=== PATIENT | female | born 1940 | race Caucasian/White ===

== ENCOUNTER 2018-05-17 15:13 | Inpatient (IN) | payer MEDICARE, OTHER ==
[~2018-05-17] VITALS: Ht 172.7 cm; Wt 97.6 kg
--- NOTE | ~2018-05-17 | O ---
[place], [place] OPERATIVE NOTE NAME: LANI SOLIS UNIT #: [id number] ROOM: 415 DOCTOR: ANG WYMAN MD BIRTHDATE: [birth year] DOS: 05/17/2018 INDICATIONS: This is a 77-year-old patient who has presented with chief complaint of dysphagia, difficulty with swallowing pills and anorexia, history of diabetes to the Emergency Room. We were concerned with esophageal foreign body possibility. OPERATION PERFORMED: Today's procedure part of investigation is panendoscopy plus propofol. SCOPE: Olympus forward-viewing gastroscope Q10 video. REPORT: After putting the patient in left lateral position and application of lubricant to the scope, the scope was introduced. Thereafter, under direct visualization, advanced through the length of esophagus without difficulty. Hiatal hernia was noticed. Benign upper esophageal stricture was noticed. Gastritis seen. Antral biopsy obtained. Duodenal bulb, second and third part within normal limits. Photographic series obtained. GI reflexion of the scope was performed. Antral biopsy sample was verified. A balloon size 20 was introduced into gastric pouch and swept along the length of the esophagus. Highest resistance in upper esophagus was noticed. Air was suctioned out. The patient was extubated, tolerated the procedure well. IMPRESSION: Esophageal stricture in upper esophagus status post balloon dilation to size 20, full size gastritis. PLAN AND DISCUSSION: We are going to give her Protonix 40 mg p.o. every day, soft diet tomorrow clear liquid today and clinical reassessment. ANG WYMAN MD CM:OPRECORD:OPERATIVE NOTE 15 41 ANG WYMAN MD 05/17/182042 interface
--- NOTE | ~2018-05-17 | EKG ---
[place], [place] ELECTROCARDIOGRAM REPORT NAME: LANI SOLIS UNIT #: [id number] ROOM: DOCTOR: EPIPHANY DRAFT REPORT BIRTHDATE: [birth year] [facility] Test Date: 2018-05-17 Test Time: 16:09:17 Pat Name: LANI SOLIS Department: Room: Gender: F Assurance Services Manager Health Care: ANGELA : 1940 Requested By: DESTIN ENNIS DNP Order Number: [id number] Reading MD: Measurements Intervals [place] Rate: 55 P: 47 PA: 155 QRS: -26 QRSD: 96 T: 64 QT: 462 QTc: 442 Interpretive Statements Sinus rhythm Borderline left axis deviation Abnormal R-wave progression, late transition Borderline T abnormalities, anterior leads No previous ECG available for comparison CM:EKGRPT:ELECTROCARDIOGRAM REPORT 1609 1311 [facility] D[facility] RE[facility] DESTIN ENNIS DNP
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
[~2018-05-17 15:13] MED LIST: DAYPRO600 M1 PO; KEFLEX500 MG PO
[2018-05-17 15:18] VITALS: BP 182/72
[2018-05-17 16:23] LABS: ALBUMIN 3.3 gm/dl (3.1-4.5); ALKALINE PHOSPHATASE 67 U/L (45-117); BUN 6 mg/dl (7-24); CHLORIDE 101 mmol/L (98-107); CREATININE 0.75 mg/dL (0.55-1.02); LIPASE 49 U/L (73-393); POTASSIUM 3.2 mmol/L (3.5-5.1); SGOT/AST 19 IU/L (3-35); SGPT/ALT 24 U/L (12-78); SODIUM 135 mmol/L (136-145); TOTAL PROTEIN 7.1 gm/dL (6.4-8.2); TROPONIN I < 0.015 ng/ml (<0.045)
[2018-05-17 16:31] LABS: BASO # 0.1 10*3/uL (0.0-0.1); BASO % 0.8 % (0.0-1.0); EOS # 0.1 10*3/uL (0.0-0.4); EOS % 1.5 % (1.0-4.0); HEMATOCRIT 41.8 % (37.0-47.0); HEMOGLOBIN 14.2 g/dl (12.0-16.0); LYMPH # 0.9 10*3/uL (1.3-4.4); LYMPH % 11.3 % (27.0-41.0); MEAN CELL VOLUME 98.4 fl (81.0-99.0); MEAN CORPUSCULAR HGB 33.4 pg (27.0-31.0); MONO # 0.7 10*3/uL (0.1-1.0); MONO % 8.7 % (3.0-9.0); NEUT # 6.1 10*3/uL (2.3-7.9); NEUT % 77.3 % (47.0-73.0); PLATELET COUNT AUTOMATED 236 10*3/uL (130-400); RED BLOOD COUNT 4.25 10*6/uL (4.10-5.10); RED CELL DISTRI WIDTH 12.9 % (0-14.5); WHITE BLOOD COUNT 7.9 10*3/uL (4.8-10.8)
[2018-05-17 17:16] LABS: BILIRUBIN NEGATIVE (NEGATIVE); BLOOD NEGATIVE (NEGATIVE); CLARITY CLEAR (CLEAR); COLOR YELLOW (YELLOW); GLUCOSE NEGATIVE (NEGATIVE); KETONE 1+ (NEGATIVE); LEUKO ESTERASE NEGATIVE (NEGATIVE); NITRITE NEGATIVE (NEGATIVE); SPECIFIC GRAVITY <= 1.005 (1.005-1.030); UROBILINOGEN 0.2 E.U./dl (0.2-1.0)
--- NOTE | 2018-05-17 17:24 | NUR ---
FISNISHED MOST OF GI COCKTAIL
[2018-05-17 17:30] LABS: BACTERIA 2+; RBC 0-2 rbc/hpf (0-2)
--- NOTE | 2018-05-17 17:56 | NUR ---
GI COCKTAIL EFFECIVE. PT TOLERATED AND RETAINED.
--- NOTE | 2018-05-17 18:19 | NUR ---
PT TO SURGERY VIA BED BY Matt BRAVO. ALL BELONGINGS SENT WITH PT.
[2018-05-17 18:20] VITALS: BP 162/67
[2018-05-17 19:12] VITALS: BP 115/55
[2018-05-17 19:27] VITALS: BP 116/57
[2018-05-17 19:42] VITALS: BP 126/51
[2018-05-17 19:50] VITALS: BP 120/60; BP 122/60
--- NOTE | 2018-05-17 19:50 | NUR ---
Time: 1948 A 77 year old FEMALE admitted to under services of YOLANDE MORENO DO. Pt. arrived via stretcher from ER. Chief complaint: DYSPHAGIA, HYPOKALEMIA. MYLES VITALE
[2018-05-17] MEDS ORDERED: LEVOTHYROXINE100 MC1 PO (20:51)
[2018-05-17] MEDS ORDERED: LOSARTAN-HCTZ1 EAC2 PO (20:52)
[2018-05-17] MEDS ORDERED: SIMVASTATIN20 MG PO (20:52)
[2018-05-17] MEDS ORDERED: 'TENORMIN50 MG PO (20:52)
[2018-05-17] MEDS ORDERED: GLUCOPHAGE500 M1 PO (20:53)
[2018-05-17] MEDS ORDERED: ESTRACE0.5 MG PO (20:54)
[2018-05-17] MEDS ORDERED: GLIPIZIDE5 MG PO (20:54)
[2018-05-17] MEDS ORDERED: VITAMIN D-32000 UNI1 PO (20:55)
[2018-05-17] MEDS ORDERED: METHOTREXATE2.5 MG PO (20:56)
[2018-05-17] MEDS ORDERED: NATURE'S BLEND F1 MG PO (20:56)
[2018-05-17] MEDS ORDERED: PRESERVISION L1 EACH PO (20:57)
[2018-05-18] VITALS: BP 144/59
[2018-05-18 07:02] LABS: BASO # 0.1 10*3/uL (0.0-0.1); BASO % 0.7 % (0.0-1.0); EOS # 0.2 10*3/uL (0.0-0.4); EOS % 3.1 % (1.0-4.0); HEMOGLOBIN 13.1 g/dl (12.0-16.0); LYMPH % 15.2 % (27.0-41.0); MEAN CELL VOLUME 99.7 fl (81.0-99.0); MEAN CORPUSCULAR HGB 33.5 pg (27.0-31.0); MEAN CORPUSCULAR HGB CONC 33.6 g/dl (33.0-37.0); MEAN PLATELET VOLUME 10.8 fl (9.6-12.3); MONO # 0.8 10*3/uL (0.1-1.0); MONO % 12.2 % (3.0-9.0); NEUT # 4.6 10*3/uL (2.3-7.9); NEUT % 68.5 % (47.0-73.0); PLATELET COUNT AUTOMATED 209 10*3/uL (130-400); RED BLOOD COUNT 3.91 10*6/uL (4.10-5.10); RED CELL DISTRI WIDTH 13.1 % (0-14.5); WHITE BLOOD COUNT 6.7 10*3/uL (4.8-10.8)
[2018-05-18 07:22] LABS: CHLORIDE 103 mmol/L (98-107); POTASSIUM 3.2 mmol/L (3.5-5.1); SODIUM 139 mmol/L (136-145)
[2018-05-18 07:39] LABS: BUN 5 mg/dl (7-24); CHOLESTEROL 131 mg/dL (<200); CREATININE 0.74 mg/dL (0.55-1.02); FREE T4 1.55 ng/dl (0.76-1.46); HDL CHOLESTEROL 42 mg/dl (40-60); LDL CHOLESTEROL 64 mg/dL (9-159); PHOSPHOROUS 3.2 mg/dL (2.5-4.9); THYROID STIM HORMONE (HS) 0.423 uIU/ml (0.358-4.75); TRIGLYCERIDES 127 mg/dl (<150); VLDL CHOLESTEROL 25 mg/dL (6-40)
[2018-05-18 08:00] VITALS: BP 136/52
--- NOTE | 2018-05-18 08:00 | NUR ---
PATIENT RESTING QUIETLY IN BED. NO DISTRESS NOTED. RESPIRATIONS EASY, REGULAR ON RA. IVF MAINTAINED PER ORDER. PT ABLE TO SWALLOW PO PROTONIX. DENIES ANY N/V. WILL CONTINUE TO MONITOR. CALL LIGHT WITHIN REACH. VSS.
[2018-05-18 08:24] LABS: VITAMIN D, 25-HYDROXY 50.5 ng/mL (30-100)
--- NOTE | 2018-05-18 09:00 | NUR ---
Signalling And Communications Engineer in to talk to patient. Patient states lives at home with alone. There are few steps in the home. Physician: [facility] Home health services: none Patient's level of ADLs: INDEPENDENT Patient has working utilities: all working DME: cane and walker Follow-up physician's appointment after d/c: will be made by hospitalist nurse director upon discharge Does patient want to access PORTAL?: no Discharge plan discussed with patient, patient lives at home alone, she states she is independent in adls and ambulation using a walker or cane, patient states she will be going home when able. discussed with her VNA and she declinies any services at this time. JOSÉ MANUEL TONY
[2018-05-18 12:00] VITALS: BP 138/52
--- NOTE | 2018-05-18 12:00 | NUR ---
Patient resting quietly with no c/o discomfort. Respirations easy and regular. Vital signs stable. No overt distress. SASCHA MEEKS
[2018-05-18] MEDS ORDERED: PROTONIX IV40 MG IV (14:15)
--- NOTE | 2018-05-18 15:46 | NUR ---
Discharge instructions reviewed with patient/family. Patient receptive and verbalizes understanding. Follow-up care arranged. Written instructions given to patient/family. SASCHA MEEKS.
== END 2018-05-18 15:45 | disposition home or self-care (01) | DRG 392 ==
LOC: ED 15:13 → 4E 17:59 → EDHOLD 17:59 → 4E 18:27
PROVIDERS: Internal Medicine; Nurse Practitioner Family; ADMIT Internal Medicine
PROC: 0D718ZZ Dilation of Upper Esophagus, Via Natural or Artificial Opening Endoscopic (ICD-10-PCS; principal; 2018-05-17)
PROC: 0DB78ZX Excision of Stomach, Pylorus, Via Natural or Artificial Opening Endoscopic, Diagnostic (ICD-10-PCS; principal; 2018-05-17)
DX: K22.2 Esophageal obstruction (principal); E87.1 Hypo-osmolality and hyponatremia; E87.6 Hypokalemia; K59.00 Constipation, unspecified; R79.82 Elevated C-reactive protein (CRP); R74.8 Abnormal levels of other serum enzymes; D72.810 Lymphocytopenia; Z96.1 Presence of intraocular lens; F17.210 Nicotine dependence, cigarettes, uncomplicated; K29.70 Gastritis, unspecified, without bleeding; K44.9 Diaphragmatic hernia without obstruction or gangrene; R82.4 Acetonuria; E66.9 Obesity, unspecified; M19.90 Unspecified osteoarthritis, unspecified site; R82.71 Bacteriuria; E11.9 Type 2 diabetes mellitus without complications; E03.9 Hypothyroidism, unspecified; I10 Essential (primary) hypertension; E78.5 Hyperlipidemia, unspecified; M06.9 Rheumatoid arthritis, unspecified; Z71.6 Tobacco abuse counseling; Z90.710 Acquired absence of both cervix and uterus; Z83.3 Family history of diabetes mellitus; Z98.49 Cataract extraction status, unspecified eye; Z84.89 Family history of other specified conditions; Z79.899 Other long term (current) drug therapy; Z68.32 Body mass index [BMI] 32.0-32.9, adult

== ENCOUNTER 2018-05-28 10:11 | Inpatient (IN) | payer MEDICARE, OTHER ==
[~2018-05-28] VITALS: Ht 172.7 cm; Wt 93.9 kg
--- NOTE | ~2018-05-28 | O ---
[place], [place] OPERATIVE NOTE NAME: LANI SOLIS UNIT #: [id number] ROOM: 420 DOCTOR: ANG WYMAN MD BIRTHDATE: [birth year] DOS: 05/31/2018 GASTROENDOSCOPIC REPORT HISTORY OF PRESENT ILLNESS: The patient has presented with chief complaint of dysphagia, status post esophageal swallow study and esophageal barium esophagram. Neither one yielded any specific information. Normal esophagram has been reported. Normal swallow study has been reported. Modified barium swallow had been normal. Labs on records have been studied. There have been all within normal limits. PROCEDURE: Today's procedure part of investigation is panendoscopy plus esophageal dilation with balloon size 20 as well as antral biopsy from erosions. PREMEDICATION: Propofol. SCOPE: Olympus forward-viewing gastroscope Q10 video. REPORT: After putting the patient in left lateral position and application of lubricant to the scope, the scope was introduced; thereafter, under direct visualization, advanced through the length of esophagus without difficulty. Esophagus cervicothoracic distally within normal limits. Gastric pouch was entered. Gastritis seen. Antral erosions appreciated. Duodenal bulb, second and third part within normal limits. Antral biopsy obtained. The patient was gradually extubated to proximal stomach, a balloon size 20 was placed in the gastric pouch, inflated to size 20 and gradually the entire length of the esophagus was dilated. Highest resistance in the upper esophagus. The patient extubated, tolerated the procedure well. IMPRESSION: 1. Esophageal benign stricture, status post balloon dilation to size 20. 2. Gastritis, status post biopsy for erosions in the antrum. PLAN AND DISCUSSION: Continuation with Protonix 40 mg daily and clinical reassessment. [place], [place] OPERATIVE NOTE NAME: LANI SOLIS UNIT #: [id number] ROOM: 420 DOCTOR: ANG WYMAN MD BIRTHDATE: [birth year] ANG WYMAN MD CM:OPRECORD:OPERATIVE NOTE 1203 1353 ANG WYMAN MD 05/31/18 1354 interface
--- NOTE | ~2018-05-28 | PROC NOTE ---
[place], [place] PROCEDURE NOTE NAME: LANI SOLIS UNIT #: [id number] ROOM: 420 DOCTOR: ARTURO JOHN BIRTHDATE: [birth year] DOS: 05/29/2018 MODIFIED BARIUM SWALLOW LOCATION: [facility]. ROOM: 420, bed 1. ORDERING PHYSICIAN: Dr. Pagan. RADIOLOGIST: Dr. Mijares. BACKGROUND INFORMATION: The patient is a 77-year-old female who was seen for modified barium swallow. This test was ordered due to dysphagia, weakness and dehydration. The patient was alert and a good historian. She reported that for the past month, she has been experiencing a sensation of globus in her throat when eating causing her to cough up foods. She stated that she takes tiny bites and chew thoroughly, but the problem still occurs. She has lost greater than 10 pounds due to this. An EGD was performed in 04/2018. The patient was diagnosed with esophageal stricture and dilation was performed. The patient reported that she seemed to have relief following dilation, but this past weekend, her problems reoccurred and she is now weak and unable to tolerate even soft foods. She is currently ordered a full liquid diet. For today's assessment, respiratory status was within normal limits. Oral peripheral examination revealed presence of upper denture with adequate fit. She presented with natural bottom teeth; however, back teeth were missing. Lingual, labial, and buccal skills were within normal limits in terms of strength, range of motion, and coordination. Volitional cough and swallow were adequate. METHODS AND MATERIALS USED FOR THE EXAM: The patient was positioned in the lateral plane and the exam was viewed under fluoroscopy. The patient was presented with a variety of consistencies to assess swallowing skills including applesauce mixed with barium presented in half teaspoon amount. Barium coated cookie given in bite size piece and thin liquid barium taken by cup. ORAL PHASE: Unremarkable. PHARYNGEAL PHASE: Unremarkable. ESOPHAGEAL PHASE: This phase of the swallow was not formally assessed during this examination. IMPRESSIONS AND RECOMMENDATIONS: Based upon assessment results, this 77-year-old female presents with oral and pharyngeal swallowing skills that are within normal limits. There was no oral difficulty. The patient was able to swallow in a timely manner with no penetration or aspiration and no pharyngeal residue. She did report a sensation that food was sticking and this was most likely occurring in her esophageal area, which is not assessed during this examination. Due to these results, the patient would benefit from an esophagram to assess the function of the esophagus as her difficulties are not due to oral [place], [place] PROCEDURE NOTE NAME: LANI SOLIS UNIT #: [id number] ROOM: [facility] DOCTOR: ARTURO JOHN BIRTHDATE: [birth year] or pharyngeal difficulty. No further speech pathology services are indicated at this time. Results and recommendations were shared with the patient, her nurse and Dr. Pagan and they verbalized understanding. Thank you very much for this referral. Should you have any questions regarding this patient, please contact the speech pathologist at [phone]. ARTURO JOHN CM:PROCNOTE:PROCEDURE NOTE 1018 1350 ANG JOHN
--- NOTE | ~2018-05-28 | CON ---
[place], [place] REPORT OF CONSULTATION NAME: LANI SOLIS UNIT #: [id number] ROOM: 420 DOCTOR: ZAMZAM FINLEYANG BIRTHDATE: [birth year] DOS: 05/29/2018 HISTORY OF PRESENT ILLNESS: A 77-year-old lady has presented with chief complaint of difficulty swallowing. The patient was placed for swallow study this morning, I was called by the painting technician that she had no problem in swallowing the food; however, perhaps there is a lower esophageal involvement. Esophagram has been organized to follow up. She has had 2 weeks ago esophageal dilation to size 20 and accordingly it had helped minimally. Her CBC differential was addressed, microcytic indices with H and H of 14 and 45 has been identified. GFR greater than 60. Electrolytes balance, liver function tests normal. INR 1.0. Urinalysis within normal limits. CBC differential within normal limit. Basic metabolic potassium of 3.2, has been addressed. PAST MEDICAL HISTORY: Complaining of dysphagia, status post esophageal dilation 2 weeks ago. Past medical history also associated with hypothyroidism, systemic hypertension, borderline obesity, hyperlipidemia, rheumatoid arthritis. PAST SURGICAL HISTORY: Hysterectomy, esophageal dilation, lumpectomy left breast, cataract removal. SOCIAL HISTORY: Smoker, nonalcohol consumer. FAMILY HISTORY: Noncontributory. ALLERGIES: No known medications. MEDICATIONS: List has been reviewed. REVIEW OF SYSTEMS: HEENT: Denies double vision, blurred vision. RESPIRATORY: Denies shortness of breath. CARDIOVASCULAR: Denies acute chest pain. DIGESTIVE SYSTEM: No hematemesis, no hematochezia, or dysphagia. PHYSICAL EXAMINATION: VITAL SIGNS: Stable. HEENT: Head normocephalic, nontraumatic. Mouth and buccal mucosa benign. NECK: Supple, no thyromegaly, no cervical lymphadenopathy. CHEST: Symmetric anatomy, equal expansion. No wheeze, no rhonchi. HEART: Normal sinus rhythm, no gallop, no murmur. ABDOMEN: Obese, soft. No hepato-organomegaly. Bowel sounds present. No pulsatile mass. EXTREMITIES: No cyanosis, no pedal edema. NEUROLOGIC: Alert, oriented to time, place, and person. LABORATORY DATA: Labs reviewed, records reviewed. IMPRESSION: Dysphagia, etiology to be ruled out, ruling out esophageal dysmotility, ruling out achalasia, hyperlipidemia, hypertension, diabetes mellitus, hypothyroidism, rheumatoid arthritis, all has been recognized. [place], [place] REPORT OF CONSULTATION NAME: LANI SOLIS UNIT #: [id number] ROOM: 420 DOCTOR: ANG WYMAN MD BIRTHDATE: [birth year] PLAN AND DISCUSSION: Since a swallow study was normal, we are going to proceed with a barium esophagram to make sure there are other issues of concern ruled out and if inconclusive, we are going to proceed with EGD dilation next morning or two and we are going to keep off anticoagulants and supportive management. OTHER ADJUNCTIVE DIAGNOSES: As outlined in paragraph of past medical and surgical history. Thank you very much indeed. ANG WYMAN MD CM:CONSTR:REPORT OF CONSULTATION 1258 05/30/18 0405 interface
[~2018-05-28 10:11] MED LIST changes: +'TENORMIN50 MG PO; +ESTRACE0.5 MG PO; +GLIPIZIDE5 MG PO; +GLUCOPHAGE500 M1 PO; +LEVOTHYROXINE100 MC1 PO; +LOSARTAN-HCTZ1 EAC2 PO; +METHOTREXATE2.5 MG PO; +NATURE'S BLEND F1 MG PO; +PRESERVISION L1 EACH PO; +PROTONIX IV40 MG IV; +SIMVASTATIN20 MG PO; +VITAMIN D-32000 UNI1 PO
[2018-05-28 10:12] VITALS: BP 190/67
[2018-05-28 10:44] LABS: BASO # 0.1 10*3/uL (0.0-0.1); BASO % 0.7 % (0.0-1.0); EOS # 0.2 10*3/uL (0.0-0.4); EOS % 1.7 % (1.0-4.0); HEMATOCRIT 45.2 % (37.0-47.0); HEMOGLOBIN 14.7 g/dl (12.0-16.0); LYMPH # 1.1 10*3/uL (1.3-4.4); LYMPH % 12.2 % (27.0-41.0); MEAN CELL VOLUME 101.1 fl (81.0-99.0); MEAN CORPUSCULAR HGB 32.9 pg (27.0-31.0); MEAN CORPUSCULAR HGB CONC 32.5 g/dl (33.0-37.0); MEAN PLATELET VOLUME 12.2 fl (9.6-12.3); MONO # 0.6 10*3/uL (0.1-1.0); NEUT # 6.9 10*3/uL (2.3-7.9); NEUT % 77.9 % (47.0-73.0); PLATELET COUNT AUTOMATED 224 10*3/uL (130-400); RED BLOOD COUNT 4.47 10*6/uL (4.10-5.10); WHITE BLOOD COUNT 8.9 10*3/uL (4.8-10.8)
[2018-05-28 10:55] VITALS: BP 162/51
[2018-05-28 10:55] LABS: ACT PARTIAL THROMBO TIME 24.4 SECONDS (20.8-31.5)
[2018-05-28 11:00] LABS: ALBUMIN 3.5 gm/dl (3.1-4.5); BUN 7 mg/dl (7-24); CHLORIDE 101 mmol/L (98-107); CREATININE 0.74 mg/dL (0.55-1.02); POTASSIUM 4.1 mmol/L (3.5-5.1); SGOT/AST 14 IU/L (3-35); SGPT/ALT 29 U/L (12-78); SODIUM 138 mmol/L (136-145); TOTAL PROTEIN 7.1 gm/dL (6.4-8.2)
[2018-05-28 11:01] LABS: ALKALINE PHOSPHATASE 62 U/L (45-117)
[2018-05-28 11:07] LABS: BILIRUBIN NEGATIVE (NEGATIVE); BLOOD NEGATIVE (NEGATIVE); CLARITY CLEAR (CLEAR); COLOR YELLOW (YELLOW); GLUCOSE NEGATIVE (NEGATIVE); KETONE NEGATIVE (NEGATIVE); LEUKO ESTERASE NEGATIVE (NEGATIVE); NITRITE NEGATIVE (NEGATIVE); PH 7.5 (5.0-9.0)
--- NOTE | 2018-05-28 11:11 | NUR ---
PATIENT TAKEN TO 4TH FLOOR AT THIS TIME BY THIS NURSE AND AUBREY RN.
[2018-05-28 11:15] VITALS: BP 170/66
--- NOTE | 2018-05-28 11:15 | NUR ---
A 77, admitted to , under the services of CALLIE White DO with a diagnosis of DYSPHAGIA, WEAKNESS, DEHYDRATION. Chief complaint is DYSOHAGIA. Patient arrived via ambulatory from ER. Monitor applied. Initial assessment completed. Vital signs taken and recorded. CALLIE WHITE DO notified of admission to the unit. Orders received. See assessment for past medical history, medications and allergies. Patient and/or family oriented to unit. [address] visitation policy reviewed. Clothing/patient valuable form completed. SKIN INTACT WITH NO WOUNDS. FLU VACCINE CURRENT DE JUSTICE
--- NOTE | 2018-05-28 11:30 | NUR ---
PATIENT DENIES ANY WOUNDS A&OX4.
[2018-05-28 11:32] LABS: WBC 0-2 wbc/hpf (0-5)
[2018-05-28 11:33] LABS: BACTERIA TRACE
--- NOTE | 2018-05-28 11:46 | NUR ---
CALLED DR WYMAN REGARDING NEW PT CONSULT. ORDER FOR MODIFIED BARIUM SWALLOW TOMORROW. CALL DR WYMAN WITH RESULTS. NO FURTHER ORDERS
[2018-05-28 12:00] VITALS: BP 170/66
[2018-05-28 16:00] VITALS: BP 146/56
--- NOTE | 2018-05-28 19:29 | NUR ---
PATIENT RESTING IN BED AT THIS TIME WATCHING TV. DENIES ANY NEEDS OR COMPLAINTS. IV FLUIDS INFUSING INTO LEFT ARM. BED IS IN LOWEST POSITION WITH WHEELS LOCKED. CALL LIGHT IS WITHIN REACH. ENCOURAGED TO USE CALL LIGHT FOR NEEDS. WILL CONTINUE TO MONITOR.
[2018-05-28 20:00] VITALS: BP 147/59
[2018-05-29] VITALS: BP 166/58
[2018-05-29 06:16] LABS: BASO # 0.1 10*3/uL (0.0-0.1); BASO % 1.1 % (0.0-1.0); EOS # 0.2 10*3/uL (0.0-0.4); EOS % 3.1 % (1.0-4.0); HEMATOCRIT 40.8 % (37.0-47.0); HEMOGLOBIN 13.2 g/dl (12.0-16.0); LYMPH # 1.8 10*3/uL (1.3-4.4); LYMPH % 28.6 % (27.0-41.0); MEAN CELL VOLUME 101.7 fl (81.0-99.0); MEAN CORPUSCULAR HGB 32.9 pg (27.0-31.0); MEAN CORPUSCULAR HGB CONC 32.4 g/dl (33.0-37.0); MEAN PLATELET VOLUME 12.3 fl (9.6-12.3); MONO # 0.7 10*3/uL (0.1-1.0); MONO % 10.7 % (3.0-9.0); NEUT # 3.5 10*3/uL (2.3-7.9); PLATELET COUNT AUTOMATED 211 10*3/uL (130-400); RED BLOOD COUNT 4.01 10*6/uL (4.10-5.10); RED CELL DISTRI WIDTH 13.2 % (0-14.5); WHITE BLOOD COUNT 6.2 10*3/uL (4.8-10.8)
[2018-05-29 06:22] LABS: BUN 7 mg/dl (7-24); CHLORIDE 105 mmol/L (98-107); CREATININE 0.61 mg/dL (0.55-1.02); POTASSIUM 3.2 mmol/L (3.5-5.1); SODIUM 140 mmol/L (136-145)
[2018-05-29 08:00] VITALS: BP 166/68
--- NOTE | 2018-05-29 08:13 | NUR ---
PATIENT AWAKE SITTING UP IN BED. BREAKFAST TRAY ORDERED. VOICES NO COMPLAINTS AT THIS TIME. IV FLUIDS RUNNING. CALL LIGHT WITHIN REACH. WILL CONTINUE TO MONITOR.
--- NOTE | 2018-05-29 09:00 | NUR ---
case management attempted to visit with patient, patient is out of room for testing, will see at a later time
--- NOTE | 2018-05-29 10:00 | NUR ---
SPEECH PATHOLOGY Modified barium swallow completed as per orders due to dysphagia, weakness and dehydration. Patient was alert and a good historian. She reported that for the past month she has been experiencing a sensation of globus in her throat when eating, causing her to cough up foods. She stated that she takes tiny bites and chews thoroughly but the problem still occurs. She has lost >10 lbs due to this. An EGD was performed 05/07/18 and patient was diagnosed with esophageal stricture. Dilation was performed. Patient reported that she seemed to have relief following dilation but this past weekend her problems reoccurred and she is now weak and unable to tolerate even soft foods. She was assessed with puree, solid and thin liquids. Oral and pharyngeal swallowing skills were WNL. Patient did complain of a sensation that food was sticking. Due to these results, patient would benefit from an esophagram to assess the function of the esophagus as her difficulties are not due to oral or pharyngeal difficulty. No further speech pathology services are indicated at this time. Results and cassidy. were shared with patient, her nurse and Dr. Pagan and they verbalized understanding. Dictated report to follow. Thank you for this referral. ARTURO JOHN MSCCC-CONTRACTING EXECUTIVE
--- NOTE | 2018-05-29 11:52 | NUR ---
Energy Professional in to talk to patient. Patient states lives at home with alone. There are few steps in the home. Physician: [facility] Home health services: none Patient's level of ADLs: independent Patient has working utilities: all working DME: none Follow-up physician's appointment after d/c: will be made by hospitalist nurse director upon discharge Does patient want to access PORTAL?: no Discharge plan discussed with patient, son present, patient lives at home alone, she was independent in adls and ambulation until she felt sick. discussed with her a discharge plan, patient states she would be going home when able, son was in agreement with this. also discussed with them VNA and they were receptive to this, given choice of companies, they chose [employer], case management will send a referral to [facility] for when patient is medically stable for discharge. JOSÉ MANUEL TONY
[2018-05-29 12:00] VITALS: BP 153/52
[2018-05-29 16:00] VITALS: BP 145/50
--- NOTE | 2018-05-29 16:10 | NUR ---
PATIENT BEING TAKEN DOWN FOR CT AT THIS TIME.
[2018-05-29 20:00] VITALS: BP 143/54
--- NOTE | 2018-05-29 20:00 | NUR ---
PATIENT SITTING UP IN BED, HAS NO COMPLAINTS AT THIS TIME. PATIENT STATED HER ONLY WORRY WAS IF MEDICARE WAS GOING TO PAY FOR HER VISIT. ENCOURAGED PATIENT TO TALK TO CASE MANAGEMENT. PATIENT LEFT WITH CALL LIGHT IN REACH.
--- NOTE | 2018-05-29 22:16 | NUR ---
24 HR chart check completed.
[2018-05-30] VITALS: BP 133/47
[2018-05-30 08:00] VITALS: BP 150/59
--- NOTE | 2018-05-30 09:00 | NUR ---
case management visits with patient, patient will be going home when able and will have [facility], no other needs at this time
--- NOTE | 2018-05-30 09:54 | NUR ---
DR. NUNEZ NOTIFIED OF 54 HR, GAVE ATENOLOL DIRECTED.
[2018-05-30 12:00] VITALS: BP 159/63
[2018-05-30 16:00] VITALS: BP 148/46
--- NOTE | 2018-05-30 16:20 | NUR ---
PT REQUESTED TO SPEAK WITH CASE MANAGEMENT. WHEN I ENTERED ROOM PT ASK IF MEDICARE WAS GOING TO PAY FOR HOPITALAZATION. REASUREED PT IS WOULD.
--- NOTE | 2018-05-30 16:34 | NUR ---
DR. NUNEZ NOTIFIED OF CRACKLES TO BILATERAL LUNG BASES. FLUIDS DISCONTINUED. WILL CONTINUE TO MONITOR.
--- NOTE | 2018-05-30 19:30 | NUR ---
ASSUMED CARE OF PT AT THIS TIME. PT IS AWAKE IN BED, A&OX3. NO COMPLAINTS VOICED. WILL MONITOR. CALL LIGHT LEFT IN REACH.
[2018-05-30 20:00] VITALS: BP 142/78
[2018-05-31] VITALS (9 sets, daily range): BP systolic 137–172; BP diastolic 32–66
--- NOTE | 2018-05-31 00:05 | NUR ---
PO RESTORIL ADMINISTERED WITH SIPS OF WATER FOR C/O INSOMNIA. PATIENT REMINDED ABOUT BEING NPO FOR EGD IN AM. PITCHER/CUPS AT BEDSIDE EMPTIED. WILL MONITOR. CALL LIGHT LEFT IN REACH.
[2018-05-31 06:16] LABS: BASO # 0.1 10*3/uL (0.0-0.1); BASO % 1.2 % (0.0-1.0); EOS # 0.2 10*3/uL (0.0-0.4); EOS % 3.5 % (1.0-4.0); HEMATOCRIT 39.5 % (37.0-47.0); LYMPH # 1.3 10*3/uL (1.3-4.4); LYMPH % 20.7 % (27.0-41.0); MEAN CELL VOLUME 102.3 fl (81.0-99.0); MEAN CORPUSCULAR HGB 33.7 pg (27.0-31.0); MEAN CORPUSCULAR HGB CONC 32.9 g/dl (33.0-37.0); MEAN PLATELET VOLUME 11.8 fl (9.6-12.3); MONO # 0.7 10*3/uL (0.1-1.0); MONO % 11.9 % (3.0-9.0); NEUT # 3.8 10*3/uL (2.3-7.9); NEUT % 62.4 % (47.0-73.0); PLATELET COUNT AUTOMATED 181 10*3/uL (130-400); RED BLOOD COUNT 3.86 10*6/uL (4.10-5.10); RED CELL DISTRI WIDTH 13.4 % (0-14.5); WHITE BLOOD COUNT 6.1 10*3/uL (4.8-10.8)
[2018-05-31 06:44] LABS: BUN 5 mg/dl (7-24); CHLORIDE 108 mmol/L (98-107); CREATININE 0.72 mg/dL (0.55-1.02); POTASSIUM 3.7 mmol/L (3.5-5.1); SODIUM 143 mmol/L (136-145)
--- NOTE | 2018-05-31 09:00 | NUR ---
case management visits with patient, patient was upset over her insurance and hospital cost. educated patient that her insurance and secondary insurance should be enough to cover her hosptial cost. also educated her that home health services would be covered at 100%. patient verbalized understanding, patient was called by home health services a few days ago to inform her that home health would be covered at 100%. patient also talked to another disability case manager last night regarding the same issues. case management will follow
[2018-06-01] VITALS: BP 149/50
--- NOTE | 2018-06-01 04:11 | NUR ---
24 HR chart check completed.
[2018-06-01 08:00] VITALS: BP 149/78
--- NOTE | 2018-06-01 09:00 | NUR ---
case management visits with patient, patient will be going home when able and denies any home needs
[2018-06-01 12:00] VITALS: BP 160/57
[2018-06-01 16:00] VITALS: BP 176/66
[2018-06-01 20:00] VITALS: BP 157/67
--- NOTE | 2018-06-01 20:00 | NUR ---
PATIENT STATED THAT SHE HASN'T MOVED HER BOWELS IN A COUPLE DAYS, BUT DENIES NEED FOR ANYTHING FOR CONSTIPATION
[2018-06-02] VITALS: BP 156/62; BP 168/58
[2018-06-02 08:00] VITALS: BP 148/64
--- NOTE | 2018-06-02 09:00 | NUR ---
case management visits with patient, patient will be going home when able and will have [facility], no other needs at this time
--- NOTE | 2018-06-02 09:15 | NUR ---
NOTIFIED DR NUNEZ OF PATIENT'S HEART RATE OF 50 AND BLOOD PRESSURE 148/64, DR STATES IT IS OK TO GIVE PATIENT ATENOLOL 50MG PO DOSE THAT IS SCHEDULED FOR 1000. WILL CONTINUE TO MONITOR PATIENT.
--- NOTE | 2018-06-02 10:56 | NUR ---
Discharge instructions reviewed with patient/family. Patient receptive and verbalizes understanding. Follow-up care arranged. Written instructions given to patient/family. ELSI BLAS
--- NOTE | 2018-06-05 08:19 | NUR ---
PHYSICAL THERAPY Nursing screen received. PAtient discharged. Thank you. Qing Aguilar,PT
== END 2018-06-02 11:30 | disposition home or self-care (01) | DRG 384 ==
LOC: ED 10:11 → 4E 11:00 → EDHOLD 11:00 → 4E 11:11
PROVIDERS: Emergency Medicine; Internal Medicine; ADMIT Internal Medicine
PROC: BD11YZZ Fluoroscopy of Esophagus using Other Contrast (ICD-10-PCS; principal; 2018-05-31)
PROC: 0D758ZZ Dilation of Esophagus, Via Natural or Artificial Opening Endoscopic (ICD-10-PCS; principal; 2018-05-31)
PROC: 0DB78ZX Excision of Stomach, Pylorus, Via Natural or Artificial Opening Endoscopic, Diagnostic (ICD-10-PCS; principal; 2018-05-31)
DX: K25.9 Gastric ulcer, unspecified as acute or chronic, without hemorrhage or perforation (principal); K22.2 Esophageal obstruction; E03.9 Hypothyroidism, unspecified; E66.9 Obesity, unspecified; E11.65 Type 2 diabetes mellitus with hyperglycemia; I10 Essential (primary) hypertension; D75.89 Other specified diseases of blood and blood-forming organs; M06.9 Rheumatoid arthritis, unspecified; E78.5 Hyperlipidemia, unspecified; M00-M99 Diseases of the musculoskeletal system and connective tissue; F17.210 Nicotine dependence, cigarettes, uncomplicated; E86.0 Dehydration; E55.9 Vitamin D deficiency, unspecified; R13.0 Aphagia; Z90.710 Acquired absence of both cervix and uterus; Z83.3 Family history of diabetes mellitus; Z82.3 Family history of stroke; Z87.19 Personal history of other diseases of the digestive system; Z71.6 Tobacco abuse counseling; K29.70 Gastritis, unspecified, without bleeding; Z68.32 Body mass index [BMI] 32.0-32.9, adult; Z79.4 Long term (current) use of insulin

== ENCOUNTER → 2019-01-22 | Outpatient (CLI) | payer MEDICARE, OTHER ==
[~2019-01-22] MED LIST changes: +ATARAX,VISTARIL50 MG PO; +NORCO 5-325 TA1 EACH PO; +PRILOSEC20 M1 PO
== END | disposition home or self-care (01) ==
LOC: US 11:30
DX: R10.11 Right upper quadrant pain (principal)

== ENCOUNTER → 2019-02-15 | Outpatient (CLI) | payer MEDICARE, OTHER ==
--- NOTE | ~2019-02-15 | EKG ---
[place], [place] ELECTROCARDIOGRAM REPORT NAME: LANI SOLIS UNIT #: [id number] ROOM: DOCTOR: EPIPHANY DRAFT REPORT BIRTHDATE: [birth year] [facility] Test Date: 2019-02-15 Test Time: 13:49:36 Pat Name: LANI SOLIS Department: Room: Gender: F Product Trainer: Tori Pantoja : 1940 Requested By: MONTRELL AGUILLON Order Number: [id number] Reading MD: Yuri Lopez MD Measurements Intervals [place] Rate: 56 P: 54 NM: 164 QRS: -24 QRSD: 96 T: 71 QT: 428 QTc: 414 Interpretive Statements Sinus rhythm Borderline left axis deviation Baseline wander in lead(s) V5,V6 Compared to ECG 05/17/2018 16:09:17 T-wave abnormality no longer present Electronically Signed On 02-16-2019 15:47:23 PDT by Yuri Lopez MD CM:EKGRPT:ELECTROCARDIOGRAM REPORT 1349 1547 MONTRELL AGUILLON MD EPIPHANY DRAFT REPORT MONTRELL AGUILLON MD
[2019-02-15 14:04] LABS: BASO # 0.1 10*3/uL (0.0-0.1); BASO % 0.8 % (0.0-1.0); EOS # 0.2 10*3/uL (0.0-0.4); EOS % 2.2 % (1.0-4.0); HEMATOCRIT 42.9 % (37.0-47.0); HEMOGLOBIN 14.4 g/dl (12.0-16.0); LYMPH # 1.3 10*3/uL (1.3-4.4); LYMPH % 14.1 % (27.0-41.0); MEAN CELL VOLUME 99.1 fl (81.0-99.0); MEAN CORPUSCULAR HGB 33.3 pg (27.0-31.0); MEAN CORPUSCULAR HGB CONC 33.6 g/dl (33.0-37.0); MONO # 0.8 10*3/uL (0.1-1.0); MONO % 9.2 % (3.0-9.0); NEUT # 6.6 10*3/uL (2.3-7.9); NEUT % 73.3 % (47.0-73.0); PLATELET COUNT AUTOMATED 250 10*3/uL (130-400); RED BLOOD COUNT 4.33 10*6/uL (4.10-5.10); RED CELL DISTRI WIDTH 12.7 % (0-14.5)
[2019-02-15 14:05] LABS: BUN 10 mg/dl (7-24); CHLORIDE 94 mmol/L (98-107); CREATININE 0.78 mg/dL (0.55-1.02); POTASSIUM 4.5 mmol/L (3.5-5.1); SODIUM 132 mmol/L (136-145)
[2019-02-15 14:10] LABS: ACT PARTIAL THROMBO TIME 25.9 SECONDS (20.0-32.1); INTERNATIONAL NORM RATIO 0.9 (2.0-3.5)
== END | disposition home or self-care (01) ==
LOC: LAB 12:55
PROVIDERS: Surgery
DX: K80.20 Calculus of gallbladder without cholecystitis without obstruction (principal); I10 Essential (primary) hypertension; E11.9 Type 2 diabetes mellitus without complications; E03.9 Hypothyroidism, unspecified; R13.10 Dysphagia, unspecified; E78.00 Pure hypercholesterolemia, unspecified; D68.8 Other specified coagulation defects; F17.200 Nicotine dependence, unspecified, uncomplicated; J44.9 Chronic obstructive pulmonary disease, unspecified

== ENCOUNTER → 2019-02-22 | Day surgery (SDC) | payer MEDICARE, OTHER ==
[~2019-02-22] VITALS: Ht 172.7 cm; Wt 95.3 kg
[2019-02-22 07:18] VITALS: BP 146/59
[2019-02-22 09:12] VITALS: BP 97/34
[2019-02-22 09:27] VITALS: BP 114/68
[2019-02-22 09:42] VITALS: BP 115/60
[2019-02-22 09:57] VITALS: BP 114/57
[2019-02-22 10:10] VITALS: BP 112/56
== END | disposition home or self-care (01) ==
LOC: SDC 02-15 13:15
DX: K80.10 Calculus of gallbladder with chronic cholecystitis without obstruction (principal); I10 Essential (primary) hypertension; E11.9 Type 2 diabetes mellitus without complications; K21.9 Gastro-esophageal reflux disease without esophagitis; M19.90 Unspecified osteoarthritis, unspecified site; E78.00 Pure hypercholesterolemia, unspecified; F17.210 Nicotine dependence, cigarettes, uncomplicated; E66.9 Obesity, unspecified; Z68.31 Body mass index [BMI] 31.0-31.9, adult; Z98.890 Other specified postprocedural states; Z79.899 Other long term (current) drug therapy; Z90.710 Acquired absence of both cervix and uterus; Z83.3 Family history of diabetes mellitus

== ENCOUNTER 2020-01-17 10:41 | Emergency (ER) | payer MEDICARE, OTHER ==
[~2020-01-17] VITALS: Ht 172.7 cm; Wt 97.1 kg
[2020-01-17 10:50] VITALS: BP 178/80
[2020-01-17 11:32] LABS: BASO # 0.1 10*3/uL (0.0-0.1); BASO % 0.5 % (0.0-1.0); EOS # 0.1 10*3/uL (0.0-0.4); EOS % 0.7 % (1.0-4.0); LYMPH # 0.9 10*3/uL (1.3-4.4); LYMPH % 9.2 % (27.0-41.0); MEAN CELL VOLUME 94.9 fl (81.0-99.0); MEAN CORPUSCULAR HGB 32.5 pg (27.0-31.0); MEAN CORPUSCULAR HGB CONC 34.2 g/dl (33.0-37.0); MEAN PLATELET VOLUME 10.4 fl (9.6-12.3); MONO # 0.8 10*3/uL (0.1-1.0); MONO % 8.6 % (3.0-9.0); NEUT # 7.7 10*3/uL (2.3-7.9); NEUT % 80.6 % (47.0-73.0); PLATELET COUNT AUTOMATED 254 10*3/uL (130-400); RED BLOOD COUNT 4.53 10*6/uL (4.10-5.10); RED CELL DISTRI WIDTH 12.6 % (0-14.5); WHITE BLOOD COUNT 9.6 10*3/uL (4.8-10.8)
[2020-01-17 11:42] LABS: ACT PARTIAL THROMBO TIME 27.1 SECONDS (20.0-32.1)
[2020-01-17 11:48] LABS: ALBUMIN 3.6 gm/dl (3.1-4.5); ALKALINE PHOSPHATASE 89 U/L (45-117); BUN 8 mg/dl (7-24); CHLORIDE 97 mmol/L (98-107); LIPASE 44 U/L (73-393); POTASSIUM 3.7 mmol/L (3.5-5.1); SGOT/AST 14 IU/L (3-35); SGPT/ALT 31 U/L (12-78); SODIUM 132 mmol/L (136-145); TOTAL PROTEIN 7.5 gm/dL (6.4-8.2)
[2020-01-17 11:55] LABS: TROPONIN I < 0.015 ng/ml (<0.045)
[2020-01-17 12:03] LABS: BILIRUBIN Negative (Negative); BLOOD Negative (Negative); CLARITY Clear (Clear); COLOR Yellow (Yellow); GLUCOSE Negative (Negative); KETONE Negative (Negative); LEUKO ESTERASE 1+ (Negative); NITRITE Negative (Negative); SPECIFIC GRAVITY 1.015 (1.001-1.030)
[2020-01-17 12:57] LABS: BACTERIA 2+; RBC 0-2 rbc/hpf (0-2)
[2020-01-17] MEDS ORDERED: PHENERGAN25 M3 PO (15:31)
[2020-01-17] MEDS ORDERED: CIPRO500 MG PO (15:31)
== END 2020-01-17 15:42 | disposition home or self-care (01) ==
LOC: ED 10:41
PROVIDERS: Emergency Medicine
DX: N39.0 Urinary tract infection, site not specified (principal); R33.9 Retention of urine, unspecified; F17.200 Nicotine dependence, unspecified, uncomplicated; Z79.899 Other long term (current) drug therapy

== ENCOUNTER 2020-01-27 14:07 | Emergency (ER) | payer MEDICARE, OTHER ==
[~2020-01-27] VITALS: Ht 172.7 cm; Wt 98.0 kg
[~2020-01-27 14:07] MED LIST changes: +CIPRO500 MG PO; +PHENERGAN25 M3 PO
[2020-01-27 14:20] VITALS: BP 156/59
[2020-01-27 18:01] LABS: BILIRUBIN Negative (Negative); BLOOD Negative (Negative); CLARITY Clear (Clear); COLOR Yellow (Yellow); GLUCOSE Negative (Negative); KETONE Negative (Negative); LEUKO ESTERASE 1+ (Negative); NITRITE Negative (Negative); PH 6.5 (4.5-8.0); UROBILINOGEN 0.2 E.U./dl (0.0-1.0)
[2020-01-27 18:22] LABS: BACTERIA 1+; RBC 0-2 rbc/hpf (0-2)
== END 2020-01-27 18:45 | disposition home or self-care (01) ==
LOC: ED 14:07
PROVIDERS: Physician Assistant
DX: K59.00 Constipation, unspecified (principal); Z79.899 Other long term (current) drug therapy; Z87.891 Personal history of nicotine dependence; Z90.49 Acquired absence of other specified parts of digestive tract

== ENCOUNTER → 2020-04-03 | Outpatient (CLI) | payer MEDICARE, OTHER | END | disposition home or self-care (01) | LOC: COVID19 10:52 | PROVIDERS: ATTEND Ophthalmology | DX: Z01.812 Encounter for preprocedural laboratory examination (principal); Z20.828 Contact with and (suspected) exposure to other viral communicable diseases ==

== ENCOUNTER → 2022-08-30 | Day surgery (SDC) | payer MEDICARE, OTHER ==
[~2022-08-30] VITALS: Ht 172.7 cm; Wt 90.7 kg
[~2022-08-30] MED LIST changes: +COLACE100 MG PO; +HYDROCODONE-AC1 EAC1 PO; +ONDANSETRON HYDR4 M1 PO; +PEPCID20 MG PO
[2022-08-30 08:04] VITALS: BP 135/53
[2022-08-30 09:25] VITALS: BP 125/53
[2022-08-30 09:39] VITALS: BP 128/58
[2022-08-30 09:55] VITALS: BP 131/62
== END | disposition home or self-care (01) ==
LOC: SDC 08-26 08:45
PROVIDERS: ATTEND Surgery
DX: L82.1 Other seborrheic keratosis (principal); I10 Essential (primary) hypertension; E11.9 Type 2 diabetes mellitus without complications; M19.90 Unspecified osteoarthritis, unspecified site; E78.00 Pure hypercholesterolemia, unspecified; F17.210 Nicotine dependence, cigarettes, uncomplicated; Z90.710 Acquired absence of both cervix and uterus

== ENCOUNTER → 2023-05-30 | Outpatient (CLI) | payer MEDICARE, OTHER | END | disposition home or self-care (01) | LOC: CT 01:27 | PROVIDERS: ATTEND Student in an Organized Health Care Education/Training Program | DX: K57.32 Diverticulitis of large intestine without perforation or abscess without bleeding (principal); K80.50 Calculus of bile duct without cholangitis or cholecystitis without obstruction; M47.816 Spondylosis without myelopathy or radiculopathy, lumbar region; K42.9 Umbilical hernia without obstruction or gangrene; Z90.49 Acquired absence of other specified parts of digestive tract ==

== ENCOUNTER → 2023-08-16 | Outpatient (CLI) | payer MEDICARE, OTHER ==
[~2023-08-16] MED LIST changes: +ATORVASTATIN CA20 M1 PO
[2023-08-16 11:26] LABS: BUN 8 mg/dl (9-23); CHLORIDE 101 mmol/L (98-107)
== END | disposition home or self-care (01) ==
LOC: LAB 00:45
PROVIDERS: ATTEND Internal Medicine Rheumatology
DX: M85.89 Other specified disorders of bone density and structure, multiple sites (principal); M05.79 Rheumatoid arthritis with rheumatoid factor of multiple sites without organ or systems involvement; E11.9 Type 2 diabetes mellitus without complications; E78.2 Mixed hyperlipidemia; D84.9 Immunodeficiency, unspecified; Z79.899 Other long term (current) drug therapy

== ENCOUNTER → 2023-08-23 | Outpatient (CLI) | payer MEDICARE, OTHER ==
[~2023-08-23] MED LIST changes: +DENOSUMAB 60 MG/ML SYRINGE SC ONE
[2023-08-23 11:03] VITALS: BP 138/60
== END | disposition home or self-care (01) ==
LOC: INJECTION 08-16 11:00
PROVIDERS: ATTEND Internal Medicine Rheumatology
DX: M81.0 Age-related osteoporosis without current pathological fracture (principal); I10 Essential (primary) hypertension; E11.9 Type 2 diabetes mellitus without complications; E07.9 Disorder of thyroid, unspecified; E78.00 Pure hypercholesterolemia, unspecified; M06.9 Rheumatoid arthritis, unspecified; Z90.710 Acquired absence of both cervix and uterus

== ENCOUNTER → 2024-01-16 | Day surgery (SDC) | payer MEDICARE, OTHER ==
[~2024-01-16] VITALS: Ht 172.7 cm; Wt 81.6 kg
[~2024-01-16] MED LIST changes: -DENOSUMAB 60 MG/ML SYRINGE SC ONE; +Lactated Ringer's Solution 1,000 ML IV ONE; +Midazolam Hydrochloride 2 MG/2 ML VIAL IV ONE; +PROPOFOL 200 MG/20 ML VIAL IV ONE
[2024-01-16 06:25] VITALS: BP 145/59
[2024-01-16 08:10] VITALS: BP 104/47
[2024-01-16 08:25] VITALS: BP 116/52
[2024-01-16 08:40] VITALS: BP 129/58
== END | disposition home or self-care (01) ==
LOC: SDC 01-12 08:00
PROVIDERS: ATTEND Surgery
DX: K57.30 Diverticulosis of large intestine without perforation or abscess without bleeding (principal); D12.2 Benign neoplasm of ascending colon; D12.3 Benign neoplasm of transverse colon; K64.8 Other hemorrhoids; R13.10 Dysphagia, unspecified; K44.9 Diaphragmatic hernia without obstruction or gangrene; K29.50 Unspecified chronic gastritis without bleeding; K21.9 Gastro-esophageal reflux disease without esophagitis; I10 Essential (primary) hypertension; E11.9 Type 2 diabetes mellitus without complications; E03.9 Hypothyroidism, unspecified; E78.00 Pure hypercholesterolemia, unspecified; M06.9 Rheumatoid arthritis, unspecified; F17.210 Nicotine dependence, cigarettes, uncomplicated; Z87.440 Personal history of urinary (tract) infections; Z90.710 Acquired absence of both cervix and uterus; Z98.49 Cataract extraction status, unspecified eye; Z98.890 Other specified postprocedural states; Z79.84 Long term (current) use of oral hypoglycemic drugs; Z79.890 Hormone replacement therapy; Z79.899 Other long term (current) drug therapy

== ENCOUNTER → 2024-02-14 | Outpatient (CLI) | payer MEDICARE, OTHER ==
[~2024-02-14] MED LIST changes: -Lactated Ringer's Solution 1,000 ML IV ONE; -Midazolam Hydrochloride 2 MG/2 ML VIAL IV ONE; -PROPOFOL 200 MG/20 ML VIAL IV ONE
[2024-02-14 10:57] LABS: BUN 9 mg/dl (9-23); CHLORIDE 100 mmol/L (98-107)
== END | disposition home or self-care (01) ==
LOC: LAB 01:51
PROVIDERS: ATTEND Internal Medicine Rheumatology
DX: D75.89 Other specified diseases of blood and blood-forming organs (principal); M85.89 Other specified disorders of bone density and structure, multiple sites; Z79.899 Other long term (current) drug therapy

== ENCOUNTER → 2024-02-21 | Outpatient (CLI) | payer MEDICARE, OTHER ==
[~2024-02-21] MED LIST changes: +DENOSUMAB 60 MG/ML SYRINGE SC ONE
[2024-02-21 10:56] VITALS: BP 142/56
== END ==
LOC: INJECTION 02:43
PROVIDERS: ATTEND Internal Medicine Rheumatology
DX: I10 Essential (primary) hypertension (principal); M85.80 Other specified disorders of bone density and structure, unspecified site

== ENCOUNTER → 2024-08-13 | Outpatient (CLI) | payer MEDICARE, OTHER ==
[~2024-08-13] MED LIST changes: -DENOSUMAB 60 MG/ML SYRINGE SC ONE
[2024-08-13 11:12] LABS: BUN 10 mg/dl (9-23); CHLORIDE 100 mmol/L (98-107); POTASSIUM 4.3 mmol/L (3.4-5.1)
== END | disposition home or self-care (01) ==
LOC: LAB 01:12
PROVIDERS: ATTEND Internal Medicine Rheumatology
DX: M05.79 Rheumatoid arthritis with rheumatoid factor of multiple sites without organ or systems involvement (principal); D64.9 Anemia, unspecified; M85.89 Other specified disorders of bone density and structure, multiple sites; Z79.899 Other long term (current) drug therapy

== ENCOUNTER → 2024-08-20 | Outpatient (CLI) | payer MEDICARE, OTHER ==
[~2024-08-20] MED LIST changes: +DENOSUMAB 60 MG/ML SYRINGE SC ONE; +PROLIA60 MG/1 ML SQ
[2024-08-20 12:35] VITALS: BP 151/71
== END | disposition home or self-care (01) ==
LOC: INJECTION 01:28
PROVIDERS: ATTEND Internal Medicine Rheumatology
DX: M85.89 Other specified disorders of bone density and structure, multiple sites (principal); E11.9 Type 2 diabetes mellitus without complications; E07.9 Disorder of thyroid, unspecified; I10 Essential (primary) hypertension; M06.9 Rheumatoid arthritis, unspecified; E78.00 Pure hypercholesterolemia, unspecified; F17.210 Nicotine dependence, cigarettes, uncomplicated; Z98.890 Other specified postprocedural states

== ENCOUNTER → 2025-02-11 | Outpatient (CLI) | payer MEDICARE, OTHER ==
[~2025-02-11] MED LIST changes: -DENOSUMAB 60 MG/ML SYRINGE SC ONE
[2025-02-11 11:52] LABS: BUN 7 mg/dl (9-23); SGPT/ALT 15 U/L (5-49)
== END | disposition home or self-care (01) ==
LOC: LAB 02-04 11:21
PROVIDERS: ATTEND Internal Medicine Rheumatology
DX: M81.0 Age-related osteoporosis without current pathological fracture (principal); M85.89 Other specified disorders of bone density and structure, multiple sites; M05.79 Rheumatoid arthritis with rheumatoid factor of multiple sites without organ or systems involvement; D84.9 Immunodeficiency, unspecified; Z79.899 Other long term (current) drug therapy

== ENCOUNTER → 2025-02-22 | Outpatient (CLI) | payer MEDICARE, OTHER ==
[~2025-02-22] MED LIST changes: +AMLODIPINE BESY10 MG PO; +DENOSUMAB 60 MG/ML SYRINGE SC SCH; +GLIPIZIDE XL2.5 M1 PO; -GLUCOPHAGE500 M1 PO; +GLUCOPHAGE500 MG PO; +LOSARTAN POTAS100 M1 PO; +METFORMIN HYDR500 MG PO; +OMEPRAZOLE MAGN20 MG PO; +PEPCID40 MG PO; +VITAMIN D350 MC2 PO; +[UNRECOGNIZED DRUG - OTHER] PO
== END | disposition home or self-care (01) ==
LOC: INJECTION 02-18 00:26
PROVIDERS: ATTEND Internal Medicine Rheumatology
DX: M85.80 Other specified disorders of bone density and structure, unspecified site (principal); I10 Essential (primary) hypertension; E07.9 Disorder of thyroid, unspecified; M06.9 Rheumatoid arthritis, unspecified; E11.9 Type 2 diabetes mellitus without complications; E78.00 Pure hypercholesterolemia, unspecified; F17.210 Nicotine dependence, cigarettes, uncomplicated; Z90.710 Acquired absence of both cervix and uterus